=== PATIENT | female | born 1980 | race Caucasian/White ===

== ENCOUNTER → 2020-07-27 | Outpatient (CLI) | payer OTHER ==
--- NOTE | 2020-07-27 14:55 | KCIC ---
Examination: MRI of the left hip without contrast HISTORY: History of left hip pain COMPARISON: None available TECHNIQUE: Multiplanar, multisequence MR imaging of the left hip performed without contrast. FINDINGS: The left femoral head is within the acetabulum. Mild joint space loss identified in the left hip join t likely degenerative changes. The attachment of the hamstring tendon to the ischial tuberosity, attachment of the iliopsoas tendon to the lesser trochanter and the attachment of the rectus femoris tendon to the anterior inferior shon ac spine grossly appears intact. There is mild increased T2 signal identified about the gluteus mediu s and minimus tendon attachment to the greater trochanter could be partial tear or tendinosis. Examination limited due to motion artifact. IMPRESSION: 1. Mild increased T2 signal identified about the gluteus medius and minimus tendon attachment to the greater trochanter could be partial tear or tendinosis. 2. Mild degenerative changes left hip joint. Electronically signed by: Pedro Briscoe MD (07/27/2020 2:52 PM) [id number]
== END ==
LOC: KCIC MRI 09:10
PROVIDERS: ATTEND Physician Assistant
DX: M16.12 Unilateral primary osteoarthritis, left hip (principal)
CPT/HCPCS: 73721

== ENCOUNTER → 2020-08-11 | Outpatient (CLI) | payer OTHER ==
--- NOTE | 2020-08-11 16:51 | KCIC ---
MRI of the lumbar spine without contrast 08/11/2020 CLINICAL HISTORY: Chronic low back pain. TECHNIQUE: Unenhanced T1-weighted and T2-weighted sagittal and axial and inversion recovery sagittal images the lumbar spine were obtained. FINDINGS: Very mild S-shaped curvature of the thoracolumbar spine is seen. Degenerative signal change s and loss of height are seen involving the L1-2, L3-4, L4-5 and L5-S1 discs. Degenerative signal juan diego nges are seen within the marrow surrounding these discs. The conus medullaris is normal morphology, p osition, and signal characteristics. A 2.9 cm rounded high signal intensity lesion is seen involving the midpole of the left kidney on the T2 weighted images. This likely represents a cyst. No further i maging evaluation is recommended. At the L1-2 disc space there is a minimal generalized disc bulge. Superimposed on this disc bulge is a right paracentral focal disc protrusion. This measures 3 mm in AP diameter. Degenerative changes ar e seen involving the facet joints bilaterally. There is mild ligamentum flavum hypertrophy bilaterall y. These findings when combined do not result in significant central spinal canal or neural foraminal stenosis. At the L2-3 disc space there is a minimal generalized disc bulge. Degenerative changes are seen invol ving the facet joints bilaterally. There is mild ligamentum flavum hypertrophy bilaterally. These fin dings do not result in significant central spinal canal or neural foraminal stenosis. At the L3-4 disc space there is a mild generalized disc bulge. Degenerative changes are seen involvin g the facet joints bilaterally. There is mild ligamentum flavum hypertrophy bilaterally. These findin gs when combined do not result in significant central spinal canal or neural foraminal stenosis. At the L4-5 disc space there is a mild generalized disc bulge. Superimposed on this disc bulge is a f ocal central disc protrusion. This measures 3 mm in AP diameter. Degenerative changes are seen involv ing the facet joints bilaterally. There is mild ligamentum flavum hypertrophy bilaterally. There is p rominence of the posterior epidural fat. These findings when combined do not result in significant ce ntral spinal canal or neural foraminal stenosis. At the L5-S1 disc space there is a minimal generalized disc bulge. Degenerative changes are seen invo lving the facet joints bilaterally. There is mild ligamentum flavum hypertrophy bilaterally. These fi ndings when combined do not result in significant central spinal canal or neural foraminal stenosis. IMPRESSION: The changes of degenerative disc disease are seen involving the lumbar spine. These findi ngs do not result in significant central spinal canal or neural foraminal stenosis at any level. Electronically signed by: Hilario Conroy MD (08/11/2020 4:48 PM) [id number]
== END ==
LOC: KCIC MRI 15:10
PROVIDERS: ATTEND Physician Assistant
DX: M47.27 Other spondylosis with radiculopathy, lumbosacral region (principal); M51.16 Intervertebral disc disorders with radiculopathy, lumbar region; M43.8X5 Other specified deforming dorsopathies, thoracolumbar region
CPT/HCPCS: 72148